=== PATIENT | female | born 1950 | race Caucasian/White ===

== ENCOUNTER 2018-08-15 07:00 | Day surgery (SDC) | payer OTHER ==
[~2018-08-15] VITALS: Ht 157.5 cm; Wt 87.5 kg
[~2018-08-15 07:00] MED LIST: GLUMETZA500 MG PO
== END 2018-08-16 09:00 | disposition home or self-care (01) ==
LOC: CIR.AMB 07:00 → SURH 07:00 → O/R 07:00 → EDSTATUS 08:00 → SURH 08:00 → O/R 17:22 → OB/GYN 17:22 → CIR.AMB 08-16 09:00 → OB/GYN 08-16 15:11 → O/R 08-16 15:11
DX: C54.1 Malignant neoplasm of endometrium (principal)